=== PATIENT | female | born 1935 | race Caucasian/White ===

== ENCOUNTER 2016-11-09 15:44 | Inpatient (IN) | payer OTHER, MEDICARE ==
[~2016-11-09] VITALS: Ht 160 cm; Wt 86.1 kg
--- NOTE | ~2016-11-09 | EKG ---
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: MZOOK : 1935 Requested By: Mohini Irby Order Number: [id number] MD: Milan Rivas Measurements Intervals [place] Rate: 87 P: 17 VT: 159 QRS: -15 QRSD: 91 T: 25 QT: 355 QTc: 427 Interpretive Statements Sinus rhythm RSR' in V1 or V2, probably normal variant Left ventricular hypertrophy Compared to ECG 06/21/2014 21:28:09 No significant change was found Electronically Signed On 11-11-2016 13:36:58 CDT by Milan Rivas [email or web address] <ELECTRONICALLY SIGNED> By: Milan Rivas MD, [facility] 11/11/16 1336 1550 1550 Milan Rivas MD, [facility] /EPI
[~2016-11-09 15:44] MED LIST: ACETAMINOPHEN-1 EAC1 PO; APAP W/CODEINE1 TA3 PO; AZITHROMYCIN; BUPRENORPHINE HC2 MG TD; BUPRENORPHINE HC8 MG TD; CIPRO500 MG PO; CIPROFLOXACIN500 M1 PO; DEPAKOTE ER500 MG PO; DESYREL150 MG PO; DITROPAN XL10 M1 PO; HYDROCODON-ACE1 EAC1 PO; HYDROCODON-ACE1 EAC8 PO; HYDROCODON-ACE1 EACH; LEVAQUIN 500 M500 M2 PO; LIDODERM 5%1 PATCH TOP; LISINOPRIL10 MG PO; LO-DOSE ASPIRIN81 M1 PO; MACROBID 100 M100 M1 PO; NABUMETONE 500500 M1 PO; NEURONTIN600 MG PO; NORCO 5-325 TA1 EACH PO; ONDANSETRON HCL4 M2 PO; RELAFEN500 MG PO; SEROQUEL 50 MG50 M2 PO; SEROQUEL XR 30300 M1 PO; SUBOXONE 2 MG-1 EAC2 SL; SUBOXONE 2 MG-1 EACH SL; SUBOXONE 8 MG-1 EAC1 SL; SUBOXONE 8 MG-1 EAC2 SL; TOPROL XL50 MG PO; TRAMADOL 50 MG50 MG PO; TRAZADONE PO; TRAZODONE 150150 M1 PO; TRAZODONE HCL100 MG PO; VICODIN 5-5001 EACH PO
[2016-11-09 15:45] VITALS: BP 135/72
[2016-11-09 16:07] LABS: ABSOLUTE NEUTROPHILS 6.2 thou/uL (1.4-8.2); BASOPHILS 0.6 % (0.0-2.0); EOSINOPHILS 1.9 % (0.0-3.0); HEMATOCRIT 40.6 % (37.0-47.0); HEMOGLOBIN 13.8 gm/dL (12.0-15.0); LYMPHOCYTES 19.1 % (24.0-44.0); MANUAL DIFF NO; MCH 30.7 pg (26.0-34.0); MCHC 34.1 g/dL (28.0-37.0); MCV 90.3 fL (80.0-100.0); MONOCYTES 11.6 % (1.0-8.0); PLATELET COUNT 182 thou/uL (150-400); POLYS 66.8 % (36.0-66.0); WBC 9.3 thou/uL (4.0-11.0)
[2016-11-09 16:17] LABS: ANION GAP 5 mmol/L (7-16); BUN 24 mg/dL (7-18); CALCIUM 8.7 mg/dL (8.5-10.1); CHLORIDE 102 mmol/L (98-107); CO2 30 mmol/L (21-32); CREATININE 1.3 mg/dL (0.6-1.0); GLUCOSE 117 mg/dL (74-106); POTASSIUM 4.4 mmol/L (3.5-5.1); SODIUM 137 mmol/L (136-145)
[2016-11-09 16:26] LABS: ALKALINE PHOSPHATASE 56 U/L (46-116); SGOT 67 U/L (15-37); SGPT 33 U/L (30-65); TOTAL BILIRUBIN 0.6 mg/dL (<0.1-1.0); TOTAL PROTEIN 7.3 g/dL (6.4-8.2); TROPONIN-I < 0.04 ng/mL (<0.04-0.07)
[2016-11-09 16:34] LABS: ALBUMIN 3.1 g/dL (3.4-5.0)
[2016-11-09 16:50] LABS: URINE BILIRUBIN NEGATIVE (Negative); URINE BLOOD NEGATIVE (Negative); URINE COLOR YELLOW; URINE GLUCOSE-RANDOM* NEGATIVE (Negative); URINE KETONES NEGATIVE (Negative); URINE NITRITE NEGATIVE (Negative); URINE PROTEIN (DIPSTICK) NEGATIVE (Negative); URINE SPECIFIC GRAVITY >= 1.030 (1.003-1.035); URINE UROBILINOGEN 0.2 E.U./dl (0.2-1.0)
[2016-11-09 17:40] LABS: AMP/METHAMP Negative (Negative); BARBITURATES Negative (Negative); BENZODIAZEPINES Negative (Negative); COCAINE Negative (Negative); METHADONE Negative (Negative); OPIATES POSITIVE (Negative); PCP Negative (Negative); THC Negative (Negative)
[2016-11-09 17:53] VITALS: BP 122/48
[2016-11-09 18:26] VITALS: BP 124/49
[2016-11-09 18:52] VITALS: BP 153/71
[2016-11-09 23:09] VITALS: BP 139/66
[2016-11-10 03:07] VITALS: BP 149/65
[2016-11-10 07:20] VITALS: BP 145/56
[2016-11-10 16:27] VITALS: BP 159/73
[2016-11-10 19:21] VITALS: BP 172/79
[2016-11-11 03:38] VITALS: BP 158/86
[2016-11-11 07:15] VITALS: BP 183/83
[2016-11-11 09:26] LABS: CALCIUM 9.2 mg/dL (8.5-10.1); CREATININE 0.8 mg/dL (0.6-1.0); POTASSIUM 3.7 mmol/L (3.5-5.1)
[2016-11-11 11:09] VITALS: BP 170/69
[2016-11-11 15:13] VITALS: BP 167/73
[2016-11-11 19:50] VITALS: BP 160/69
[2016-11-12 04:15] VITALS: BP 149/69
[2016-11-12 07:15] VITALS: BP 176/87
[2016-11-12 07:45] VITALS: BP 176/78
[2016-11-12 11:40] VITALS: BP 176/87
[2016-11-12 14:24] VITALS: BP 176/87
== END 2016-11-12 15:57 | disposition home health service (06) | DRG 71 ==
LOC: ER 15:44 → EROBS 17:38 → 2N 17:38
PROVIDERS: Family Medicine; Nurse Practitioner Family
DX: G93.40 Encephalopathy, unspecified (principal); G45.9 Transient cerebral ischemic attack, unspecified; N17.9 Acute kidney failure, unspecified; I10 Essential (primary) hypertension; E78.5 Hyperlipidemia, unspecified; F31.9 Bipolar disorder, unspecified; G89.29 Other chronic pain; Z79.899 Other long term (current) drug therapy; Z88.0 Allergy status to penicillin; Z90.11 Acquired absence of right breast and nipple; Z88.6 Allergy status to analgesic agent
CPT/HCPCS: 10081

== ENCOUNTER 2017-04-07 14:38 | Inpatient (IN) | payer OTHER, MEDICARE ==
[~2017-04-07] VITALS: Ht 165.1 cm; Wt 91.4 kg
--- NOTE | ~2017-04-07 | EKG ---
[facility] [place] [address] ELECTROCARDIOGRAM REPORT Name: ERA GARCIA Room #: [facility]#: [id number] Admission: 04/07/17 Attend Phys: Discharge: Date of : 35 Report #: [id number] THIS REPORT FOR: //name// [facility] ED Test Date: 2017-04-07 Test Time: 14:48:33 Pat Name: ERA GARCIA Department: Room: Gender: F Felt Puller: HARRIS : 1935 Requested By: Julia Ellis Order Number: [id number] MD: Milan Rivas Measurements Intervals [place] Rate: 91 P: 62 WA: 187 QRS: -10 QRSD: 84 T: 3 QT: 365 QTc: 450 Interpretive Statements Sinus rhythm RSR' in V1 or V2, probably normal variant Compared to ECG 11/09/2016 15:50:31 No significant changes Electronically Signed On 04-07-2017 17:20:20 FILTERER by Milan Rivas [email or web address] <ELECTRONICALLY SIGNED> By: Milan Rivas MD, [facility] 04/07/17 1720 1448 1448 Milan Rivas MD, [facility] /EPI
--- NOTE | ~2017-04-07 | HC ---
[facility] [place] [address] CONSULTATION Name: ERA GARCIA Room #: 364-P [facility] IN M.R.#: [id number] Admission: 04/07/17 Attend Phys: Esvin Chandra MD Discharge: 04/11/17 Date of : 35 Report #: [id number] THIS REPORT FOR: //name// CC: Esvin Chandra DATE OF SERVICE: 04/10/2017 HISTORY OF PRESENT ILLNESS: The patient is an 81-year-old white female who was found unresponsive on her couch at her Assisted Living Facility. She was noted to be quite hypoxic and was placed on 10 liters. She had an emesis en route. She was noted to have a significant global encephalopathy with presumed aspiration pneumonia. She is more alert, but still has significant encephalopathy and mental status change. She continues to be hypoxemic. Currently, he is on [address] of the head was negative. We are seeing her in rehabilitation medicine consultation. PAST MEDICAL HISTORY: Breast CA, hypertension, bipolar disorder, bilateral total knee replacements, chronic pain/narcotic usage. MEDICATIONS: Please see the full medication listing. ALLERGIES: MORPHINE, PENICILLIN. APPARENTLY, THE MORPHINE MAY HAVE CONTRIBUTED TO HER SHORTNESS OF BREATH/STOPPING BREATHING. HABITS: No history of tobacco or alcohol abuse. SOCIAL HISTORY: Lives at [facility], no steps, was modified independent with a 4-wheeled walker. REVIEW OF SYSTEMS: Did not offer any current complaints of chest pain, shortness of breath, abdominal discomfort. Some shortness of breath with limited activity. No focal extremity pain complaints currently, although again she has significant cognitive issues. She does have significant past pain complaints and has a diagnosis of chronic pain syndrome requiring complex medication management by the pain clinic. She also has her psychiatric issues with bipolar disorder and noted prior episode of major depressive disorder. PHYSICAL EXAMINATION: GENERAL: She is an 81-year-old white female in no obvious distress. VITAL SIGNS: Temperature is 98.6, pulse 78, respirations 18, blood pressure 148/75. NEUROLOGIC: She is alert. She knew she was at [facility]. She can follow basic commands. She was able to tell me that she was not previously on oxygen. She had some difficulty with naming objects including a watch, but when once I said, she was able to name it back for me. She could follow basic 1 step commands. EOMs appeared to be full. Facies were symmetric. She has [facility] [address] [place] [address] CONSULTATION Name: ERA GARCIA Room #: 364-P [facility] IN M.R.#: [id number] Admission: 04/07/17 Attend Phys: Esvin Chandra MD Discharge: 04/11/17 Date of : 35 Report #: [id number] functional range of motion of both upper extremities with strength of grade 4-/5. DTRs are trace to 1. LOWER EXTREMITIES: Old bilateral knee incisions are well healed. No focal calf swelling. EXTREMITIES: No distal lower extremity edema. Strength is probably a grade 3+ to 4-/5. DTRs are trace to 1. Functionally, she has been contact guard with sit to stand. She has ambulated a short distance 40-feet contact guard with a front-wheeled walker. ASSESSMENT: An 81-year-old white female with the following problem list: 1. Multifactorial encephalopathy. There appears to be a hypoxic component. 2. Functional mobility, ADLs and cognitive deficits with decline from premorbid function. 3. Presumed aspiration pneumonia, on antibiotics. 4. Past history of chronic pain syndrome. 5. Has history of chronic narcotic usage. 6. Bipolar disorder. 7. History of depressive disorder. 8. Breast cancer. 9. Hypertension. 10. Bilateral total knee replacements. PLAN: The patient is a candidate for an acute in-hospital inpatient rehabilitation stay. We can plan on transfer when the patient is medically cleared and a bed available on the rehab [facility]. We will be glad to follow along with you in the meantime. <ELECTRONICALLY SIGNED> By: Cachorro Holden MD 04/25/17 1408 0935 1856 Cachorro Holden MD /nt
[2017-04-07 14:39] VITALS: BP 138/67
[2017-04-07 15:04] LABS: BE(vivo) -0.8 mmol/L (-2 to +3); HCO3 28.8 mmol/L (22.0-26.0); PO2 101.8 mmHg (80.0-100.0); sO2 96.4 % (92.0-98.0)
[2017-04-07 15:05] LABS: PCO2 70.4 mmHg (35.0-45.0); pH 7.229 (7.360-7.450)
[2017-04-07 15:18] LABS: ABSOLUTE NEUTROPHILS 8.5 thou/uL (1.4-8.2); BASOPHILS 0.3 % (0.0-2.0); EOSINOPHILS 0.1 % (0.0-3.0); HEMATOCRIT 43.3 % (37.0-47.0); HEMOGLOBIN 14.2 gm/dL (12.0-15.0); LYMPHOCYTES 8.5 % (24.0-44.0); MCH 30.4 pg (26.0-34.0); MCHC 32.8 g/dL (28.0-37.0); MCV 92.6 fL (80.0-100.0); MONOCYTES 6.8 % (1.0-8.0); PLATELET COUNT 219 thou/uL (150-400); POLYS 84.3 % (36.0-66.0); RBC 4.68 mil/uL (4.20-5.00); RDW 14.5 % (10.5-14.5)
[2017-04-07 15:28] LABS: CALCIUM 8.8 mg/dL (8.5-10.1); CREATININE 1.4 mg/dL (0.6-1.0)
[2017-04-07] MEDS ORDERED: ACETAMINOPHEN-1 EAC2 PO (15:32)
[2017-04-07 15:33] LABS: ALBUMIN 3.1 g/dL (3.4-5.0); DIRECT BILIRUBIN 0.1 mg/dL (<0.1-0.3); TOTAL BILIRUBIN 0.3 mg/dL (<0.1-1.0); TOTAL PROTEIN 7.6 g/dL (6.4-8.2)
[2017-04-07 15:36] LABS: POTASSIUM 6.8 mmol/L (3.5-5.1)
[2017-04-07 17:22] LABS: URINE BILIRUBIN NEGATIVE (Negative); URINE BLOOD NEGATIVE (Negative); URINE CLARITY CLEAR; URINE COLOR YELLOW; URINE GLUCOSE-RANDOM* NEGATIVE (Negative); URINE KETONES TRACE (Negative); URINE LEUKOCYTES-REFLEX NEGATIVE (Negative); URINE NITRITE-REFLEX NEGATIVE (Negative); URINE PROTEIN (DIPSTICK) 1+ (Negative); URINE SPECIFIC GRAVITY >= 1.030 (1.005-1.035); URINE UROBILINOGEN 0.2 E.U./dl (0.2-1.0)
[2017-04-07 17:28] LABS: CRYSTALS None Seen /LPF (None Seen); SQUAMOUS 0-3 Few /LPF (0-3); URINE WBC-REFLEX None Seen /HPF (0-5)
[2017-04-07 17:29] LABS: BACTERIA-REFLEX 1-9 Few /HPF (None Seen); HYALINE CASTS 0-3 Few /LPF (None Seen); URINE RBC None Seen /HPF (0-2)
[2017-04-07 17:32] LABS: AMP/METHAMP Negative (Negative); BARBITURATES Negative (Negative); BENZODIAZEPINES Negative (Negative); COCAINE Negative (Negative); METHADONE Negative (Negative); OPIATES POSITIVE (Negative); PCP Negative (Negative)
[2017-04-07 18:41] LABS: BE(vivo) -0.8 mmol/L (-2 to +3); HCO3 26.8 mmol/L (22.0-26.0); PCO2 56.4 mmHg (35.0-45.0); PO2 102.7 mmHg (80.0-100.0); pH 7.295 (7.360-7.450)
[2017-04-07 19:01] VITALS: BP 100/69
[2017-04-07 20:14] VITALS: BP 142/57
[2017-04-07 20:20] VITALS: BP 126/46
[2017-04-08] VITALS: BP 136/59
[2017-04-08 03:23] VITALS: BP 136/58
[2017-04-08 08:54] VITALS: BP 137/55
[2017-04-08 12:58] VITALS: BP 134/67
[2017-04-08 17:54] VITALS: BP 145/65
[2017-04-08 19:45] VITALS: BP 136/67
[2017-04-09 04:15] VITALS: BP 141/63
[2017-04-09 08:20] VITALS: BP 162/67
[2017-04-09 12:17] VITALS: BP 152/69
[2017-04-09 16:39] VITALS: BP 160/71
[2017-04-09 20:30] VITALS: BP 172/67
[2017-04-10 05:10] VITALS: BP 168/89
[2017-04-10 09:25] VITALS: BP 148/75
[2017-04-10 13:44] LABS: HEMATOCRIT 41.3 % (37.0-47.0); HEMOGLOBIN 13.6 gm/dL (12.0-15.0); MCH 29.9 pg (26.0-34.0); MCV 90.6 fL (80.0-100.0); RBC 4.56 mil/uL (4.20-5.00); RDW 14.1 % (10.5-14.5); WBC 11.7 thou/uL (4.0-11.0)
[2017-04-10 13:59] LABS: CALCIUM 8.8 mg/dL (8.5-10.1); CREATININE 0.8 mg/dL (0.6-1.0); POTASSIUM 3.8 mmol/L (3.5-5.1); TOTAL BILIRUBIN 0.5 mg/dL (<0.1-1.0)
[2017-04-10 17:49] VITALS: BP 180/80
[2017-04-10 20:20] VITALS: BP 173/82
[2017-04-11 05:10] VITALS: BP 169/69
[2017-04-11 07:42] VITALS: BP 169/66
[2017-04-11 11:39] VITALS: BP 178/64
[2017-04-11] MEDS ORDERED: CIPRO500 MG PO (12:49)
[2017-04-11 15:08] VITALS: BP 162/75
== END 2017-04-11 18:01 | DRG 91 ==
LOC: ER 14:38 → 3W 18:04 → EROBS 18:04 → 3W 18:04
PROVIDERS: Emergency Medicine; Family Medicine
DX: G93.1 Anoxic brain damage, not elsewhere classified (principal); J69.0 Pneumonitis due to inhalation of food and vomit; F19.90 Other psychoactive substance use, unspecified, uncomplicated; I10 Essential (primary) hypertension; F31.9 Bipolar disorder, unspecified; E87.5 Hyperkalemia; G89.4 Chronic pain syndrome; K21.9 Gastro-esophageal reflux disease without esophagitis; G47.00 Insomnia, unspecified; Z96.653 Presence of artificial knee joint, bilateral; Z85.3 Personal history of malignant neoplasm of breast; Z90.11 Acquired absence of right breast and nipple; Z79.82 Long term (current) use of aspirin; Z79.899 Other long term (current) drug therapy; Z88.0 Allergy status to penicillin; Z88.5 Allergy status to narcotic agent
CPT/HCPCS: 10879

== ENCOUNTER 2017-04-11 13:55 | Inpatient (IN) | payer OTHER, MEDICARE ==
[~2017-04-11] VITALS: Ht 157.5 cm; Wt 88.5 kg
--- NOTE | ~2017-04-11 | PLAN ---
[facility] [place] [address] REHAB UNIT PLAN OF CARE Name: ERA GARCIA Room #: 504-1 ADM IN M.R.#: [id number] Admission: 04/11/17 Attend Phys: Cachorro Holden MD Discharge: Date of : 35 Report #: [id number] THIS REPORT FOR: //name// CC: Cachorro Chandra DATE OF SERVICE: 04/14/2017 The patient is seen back today in followup. She is in no distress. Last recorded temperature is 98.7, pulse 60, respirations 18, blood pressure is 156/60. The patient was up some during the night, noted to be confused, and impulsive at times. She has been voiding without difficulty. O2 has been on at 2 liters. This morning, she was appropriately talking about the Super Bowl and was conversational. No focal calf swelling. Transfers are min assist with gait contact guard 250 feet front-wheeled walker. Lower body dressing is moderate assistance. In speech therapy, she does have mild comprehensive deficits. ASSESSMENT: 1. Multifactorial encephalopathy. 2. Functional mobility, activities of daily living and cognitive deficits. 3. Presumed aspiration pneumonia. 4. Past history of chronic pain syndrome. 5. Past history of chronic narcotic usage. 6. Bipolar disorder. 7. History of depressive disorder. 8. Breast cancer. 9. Hypertension. 10. Prior bilateral total knee replacements. PLAN: The overall plan of care is based on the preadmission screen, post-admission physician evaluation and information garnered from therapy assessments. 1. Estimated length of stay is at least 10 days to 2 weeks pending progress. 2. Medical prognosis is reasonably good. 3. Anticipated interventions includes the interdisciplinary acute inpatient rehabilitation program with the goal of maximizing the patient's functional independence, so that she can hopefully return back to her prior living situation. PT and OT are involved with speech therapy, rehab nursing is assisting regarding medication management, skin care prophylaxis, bowel and bladder issues, and nursing education. Case management is involved and the hospice consultant physicians. 4. Anticipated functional outcomes would be for the patient to improve as far as her overall cognition and to reach a point where she can be modified independent at the 4-wheeled walker level to return back to her home setting. 5. Discharge destination is [facility]. 6. Expected therapy by discipline includes PT, OT and speech 1 [place] [address] REHAB UNIT PLAN OF CARE Name: ERA GARCIA Room #: 504-1 [facility] IN [facility]#: [id number] Admission: 04/11/17 Attend Phys: Cachorro Holden MD Discharge: Date of : 35 Report #: [id number] each five days a week throughout the duration of the acute inpatient rehabilitation program. <ELECTRONICALLY SIGNED> By: Cachorro Holden MD 04/14/17 1226 0815 0836 Cachorro Holden MD /REJI
--- NOTE | ~2017-04-11 | EKG ---
[address] [address] ELECTROCARDIOGRAM REPORT Name: RADHAERA Ludy Room #: 501-A DIS [facility]#: [id number] Admission: 04/11/17 Attend Phys: Cachorro Holden MD Discharge: 04/22/17 Date of : 35 Report #: [id number] THIS REPORT FOR: //name// [facility] ED Test Date: 2017-04-24 Test Time: 15:20:38 Pat Name: ERA GARCIA Department: Room: Gender: F Label Press Operator: MZOOAnahy : 1935 Requested By: Jd Harris Order Number: [id number] MD: Measurements Intervals [place] Rate: 106 P: 39 HI: 154 QRS: -17 QRSD: 81 T: 28 QT: 338 QTc: 449 Interpretive Statements Sinus tachycardia Probable left atrial enlargement Probable left ventricular hypertrophy Compared to ECG 04/07/2017 14:48:33 Sinus rhythm no longer present [email or web address] By: 1520 1520 Epiphany EpiphanyMD /EPI
--- NOTE | ~2017-04-11 | HC ---
[facility] [place] [address] CONSULTATION Name: ERA GARCIA Room #: 504-1 ADM IN .R.#: [id number] Admission: 04/11/17 Attend Phys: Cachorro Holden MD Discharge: Date of : 35 Report #: [id number] THIS REPORT FOR: //name// CC: Cachorro Chandra DATE OF SERVICE: 04/13/2017 NEUROBEHAVIORAL STATUS EXAMINATION ATTENDING PHYSICIAN: Cachorro Holden M.D. TELECOM MANAGER: Esvin Schneider, PhD CLINICAL PRESENTATION: The patient is an 81-year-old female admitted to the [facility] Rehabilitation Unit for comprehensive inpatient rehabilitation program to improve functional mobility, activities of daily living and self-care, and mental status secondary to deficits from multifactorial encephalopathy. She was initially brought to the hospital when found unresponsive on the couch of her assisted living facility. She had presumed aspiration pneumonia and was confused and disoriented at admission. Her diagnoses also include functional mobility deficits, history of chronic pain, chronic narcotic use, bipolar disorder, depression, breast cancer, hypertension and bilateral knee replacements. A complete description of her medical condition and history can be found in her medical records. Neuropsychological consultation was requested to provide assistance in the assessment of cognitive and emotional status and to provide recommendations and services. Prior to this most recent admission, she was residing in assisted living at [facility]. She has 6 children. The patient is a college graduate. 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 She reports having a good social support network and was playing bridge at [employer] up until this recent medical event. TECHNIQUES UTILIZED: Clinical interview, review of medical records, staff consultation and behavioral observation, mini mental status exam 2 standard version, clock drawing and calibrated ideational fluency assessment (letter and category fluency), brief abstract reasoning test. EXAMINATION FINDINGS: The patient was alert and cooperative with the assessment. She accurately described events surrounding her initial hospitalization. She was able to indicate that she was found in an unconscious state on her couch after missing a meal. There is no evidence of aphasia. Her thoughts are logical and goal oriented. There is no evidence of thought disorder. She does not report auditory or visual hallucinations. The patient [facility] [address] [place] [address] CONSULTATION Name: ERA GARCIA Room #: 504-1 ADM IN ..#: [id number] Admission: 04/11/17 Attend Phys: Cachorro Holden MD Discharge: Date of : 35 Report #: [id number] was tangential during the assessment and required redirection to task. The patient reported symptoms to include sleep disturbance. She does not report subjective anxiety or depression at this time. She also denies difficulty with cognitive function. Appetite is reported as within normal limits. Her performance on the MMSE 2 brief version is within normal limits with a raw score of 15/16. She was 2/3 for immediate recall of 3 items after a brief time delay and distraction. Her performance on the MMSE 2 standard version deteriorated to a raw score of 24/30, T score 36 and percentile rank of 8. She was 1/5 for serial 7's. The patient also had difficulty in copying a simple geometric design. The patient was unable to accurately set the hands of a clock at a designated time. Her performance in letter fluency was in the borderline range with a raw score of 11, T score of 34 and percentile rank of 5. Category fluency was in the borderline range with a raw score of 22, T score 33, and percentile rank of 4. Moderate impairment was noted in overall verbal fluency with a raw score of 33, T score of 28 and percentile rank of 1. Her performance on a brief abstract reasoning test was 5/8 suggesting mild deficits. The patient is presenting with deficits that are primarily in sustained concentration, visual spatial coordination and verbal fluency. Deficits in verbal fluency often indicate impairment in executive functioning. DIAGNOSTIC IMPRESSION: Major Neurocognitive Disorder, unspecified, without behavior disorder -- extent to be determined, likely in the mild to moderate range. Bipolar disorder and depression by history. RECOMMENDATIONS: The patient is presenting with significant cognitive impairment that likely represents dementia. Her mood is stable and does not appear to be contributing to her presentation. Variability in thought organization, memory and problem solving will likely interfere with safety. The patient will need 24-hour care that includes assistance in management of medication, nutrition and finances. Continued placement in assisted living is likely to be adequate if appropriate supervision can be maintained for safety. Reassurance will help contribute to diminishing her sense of anxiety. However, emotional state appears stable and well managed. [address] [address] CONSULTATION Name: ERA GARCIA Room #: 504-1 ADM IN M.R.#: [id number] Admission: 04/11/17 Attend Phys: Cachorro Holden MD Discharge: Date of : 35 Report #: [id number] Thank you very much for allowing me to provide the consultation on this patient. <ELECTRONICALLY SIGNED> By: Esvin Schneider, PhD 04/14/17 1644 1325 1903 Esvin Schneider, PhD /nt
--- NOTE | ~2017-04-11 | H ---
[facility] [place] [address] HISTORY AND PHYSICAL Name: ERA GARCIA Room #: 504-1 ADM IN M.R.#: [id number] Admission: 04/11/17 Attend Phys: Cachorro Holden MD Discharge: Date of : 35 Report #: [id number] THIS REPORT FOR: //name// CC: Cachorro Chandra DATE OF SERVICE: 04/11/2017 HISTORY AND PHYSICAL AND POST-ADMISSION PHYSICIAN EVALUATION HISTORY OF PRESENT ILLNESS: The patient is an 81-year-old white female initially was found unresponsive on her couch at her assisted living facility. She was noted to be quite hypoxic at that time and was placed on 10 liters. She had an emesis en route. She was noted to have a significant global encephalopathy with presumed aspiration pneumonia. She improved as far as her alertness, but was still noted to have significant encephalopathy with mental status changes. She has continued to be hypoxemic and has been on nasal prong O2, [address] of the head was negative. The patient was noted to have had a significant decline in her overall functional mobility and ADLs as well as cognition and has been admitted for acute in-hospital inpatient rehabilitation. PAST MEDICAL HISTORY: Includes breast CA, hypertension, bipolar disorder, bilateral total knee replacements, chronic pain with narcotic usage. MEDICATIONS: Please see the full medication listing. The list includes her previously noted vitamins, herbals and supplements. ALLERGIES: MORPHINE, PENICILLIN. Apparently, the morphine may have contributed to her shortness of breath/stopping breathing. HABITS: No history of tobacco or alcohol abuse. SOCIAL HISTORY: Lives at [facility]. No steps was modified and independent with a 4-wheeled walker. REVIEW OF SYSTEMS: No current complaints of chest pain, shortness of breath or abdominal discomfort. She was rather groggy this morning and had been up some during the night with some increased confusion and was given Haldol as noted. She also was straight catheterized. She does have a significant past pain complaints that are previously noted including chronic pain syndrome requiring complex medication management in clinic. She also has psychiatric issues with bipolar disorder and noted prior episode of major depressive disorder. PHYSICAL EXAMINATION: GENERAL: An 81-year-old white female, was sleepy, but does arouse. VITAL SIGNS: Temperature 37.1, pulse 79, respirations 18, blood pressure [facility] [address] [place] [address] HISTORY AND PHYSICAL Name: ERA GARCIA Room #: 504-1 ADM IN M.R.#: [id number] Admission: 04/11/17 Attend Phys: Cachorro Holden MD Discharge: Date of : 35 Report #: [id number] 182/92. HEENT: Facies appeared symmetric, on nasal prong O2. CHEST: Sounded clear to auscultation. CARDIAC: Regular rate and rhythm. ABDOMEN: Bowel sounds positive, nontender. GENITOURINARY AND RECTAL: Deferred. NEUROLOGIC: Will follow basic 1 step commands. EXTREMITIES: Functional range of motion of both upper and lower extremities, strength is probably grade 4-/5. No distal lower extremity edema. She has old bilateral knee incisions well healed. Prior to coming to rehabilitation, she has been needing min assist with basic short distance functional mobility. ASSESSMENT: An 81-year-old white female with the following problem list: 1. Multifactorial encephalopathy. There appears to be a hypoxic component. She did have some confusion last night and notes that Haldol was given. 2. Functional mobility, ADLs and cognitive deficits with a decline from premorbid function. 3. Presumed aspiration pneumonia for which she has been treated on antibiotics. 4. Past history of chronic pain syndrome. 5. Past history of chronic narcotic usage. 6. Bipolar disorder. 7. History of depressive disorder. 8. Breast cancer. 9. Hypertension. 10. Prior bilateral total knee replacements. PLAN: The patient is admitted for acute in-hospital inpatient rehabilitation. From a post-admission physician evaluation perspective, there are no relevant changes since the preadmission screening. Please see the above review of prior and current functional conditions and comorbidities. Please see the patient's previous and current functional status. As far as risk of complication, she has the above noted medical comorbidities. The initial plan of care involves the interdisciplinary acute inpatient rehabilitation program with the goal of maximizing the patient's functional independence, so that she can hopefully return back to her prior living situation. Measurable functional goals would be for her to become modified independent with transfers, mobility and ADLs and to show improved cognition. Prognosis is reasonably good. Estimated length of stay probably at least 10 days to 2 weeks and potentially longer if warranted. Potential barriers would include her multiple medical comorbidities and decreased functional status. The patient meets diagnostic criteria for an acute in-hospital inpatient rehabilitation stay. She meets medical necessity criteria and we will have the internet marketing consultant physicians continue to follow. She does have the tolerance for an [facility] [address] [place] [address] HISTORY AND PHYSICAL Name: ERA GARCIA Room #: 504-1 [facility] IN M.R.#: [id number] Admission: 04/11/17 Attend Phys: Cachorro Holden MD Discharge: Date of : 35 Report #: [id number] acute rehab therapy program and has appropriate discharge goals back to the home setting. <ELECTRONICALLY SIGNED> By: Cachorro Holden MD 04/14/17 1226 0517 0604 Cachorro Holden MD /[facility]
[~2017-04-11 13:55] MED LIST changes: +ACETAMINOPHEN-1 EAC2 PO
[2017-04-11 19:30] VITALS: BP 182/96
[2017-04-12] VITALS: BP 179/86
[2017-04-12 03:39] LABS: HEMATOCRIT 43.5 % (37.0-47.0); HEMOGLOBIN 14.3 gm/dL (12.0-15.0); MCH 29.6 pg (26.0-34.0); MCHC 32.9 g/dL (28.0-37.0); MCV 90.2 fL (80.0-100.0); RBC 4.82 mil/uL (4.20-5.00); RDW 13.7 % (10.5-14.5); WBC 12.5 thou/uL (4.0-11.0)
[2017-04-12 03:48] LABS: CALCIUM 8.5 mg/dL (8.5-10.1); CREATININE 0.9 mg/dL (0.6-1.0)
[2017-04-12 08:00] VITALS: BP 155/61
[2017-04-12 19:56] VITALS: BP 161/85
[2017-04-13 07:15] VITALS: BP 175/74
[2017-04-13 20:19] VITALS: BP 156/60
[2017-04-14 05:22] LABS: CALCIUM 8.3 mg/dL (8.5-10.1); CREATININE 0.8 mg/dL (0.6-1.0); POTASSIUM 4.4 mmol/L (3.5-5.1)
[2017-04-14 08:18] VITALS: BP 141/70
[2017-04-14 19:15] VITALS: BP 178/74
[2017-04-15 07:45] VITALS: BP 139/52
[2017-04-15 19:28] VITALS: BP 136/82
[2017-04-15 19:37] VITALS: BP 154/66
[2017-04-16 07:01] VITALS: BP 150/65
[2017-04-16 19:18] VITALS: BP 143/67
[2017-04-17 08:30] VITALS: BP 141/78
[2017-04-17 19:25] VITALS: BP 128/57
[2017-04-18 07:15] VITALS: BP 126/63
[2017-04-18 21:26] VITALS: BP 125/55
[2017-04-19 08:00] VITALS: BP 121/66
[2017-04-19 19:05] VITALS: BP 141/54
[2017-04-20 08:30] VITALS: BP 145/48
[2017-04-20 16:33] VITALS: BP 143/68
[2017-04-20 19:00] VITALS: BP 145/60
[2017-04-21 07:57] VITALS: BP 128/79
[2017-04-21 16:52] VITALS: BP 128/79
[2017-04-21 20:00] VITALS: BP 153/73
[2017-04-22 07:15] VITALS: BP 147/60
[2017-04-22 11:43] VITALS: BP 128/79
[2017-04-22 14:29] VITALS: BP 128/79
== END 2017-04-22 14:41 | disposition home health service (06) | DRG 70 ==
LOC: ENTRNSPT 04-22 14:26 → EDTRNSPTSTS 04-22 14:32
PROVIDERS: Family Medicine; Physical Medicine & Rehabilitation
DX: G93.40 Encephalopathy, unspecified (principal); J69.0 Pneumonitis due to inhalation of food and vomit; N17.9 Acute kidney failure, unspecified; M62.82 Rhabdomyolysis; N39.0 Urinary tract infection, site not specified; I10 Essential (primary) hypertension; F31.9 Bipolar disorder, unspecified; Z96.653 Presence of artificial knee joint, bilateral; G89.4 Chronic pain syndrome; F01.50 Vascular dementia, unspecified severity, without behavioral disturbance, psychotic disturbance, mood disturbance, and anxiety; E87.6 Hypokalemia; R41.82 Altered mental status, unspecified; R53.81 Other malaise; Z85.3 Personal history of malignant neoplasm of breast; Z88.0 Allergy status to penicillin; Z88.6 Allergy status to analgesic agent; Z79.899 Other long term (current) drug therapy
CPT/HCPCS: 10092; 10112

== ENCOUNTER 2017-04-24 14:35 | Inpatient (IN) | payer OTHER, MEDICARE ==
[~2017-04-24] VITALS: Ht 152.4 cm; Wt 89.2 kg
[2017-04-24 14:35] VITALS: BP 118/42
[2017-04-24 15:13] LABS: ABSOLUTE NEUTROPHILS 8.7 thou/uL (1.4-8.2); BASOPHILS 0.8 % (0.0-2.0); EOSINOPHILS 0.7 % (0.0-3.0); HEMATOCRIT 39.3 % (37.0-47.0); HEMOGLOBIN 12.9 gm/dL (12.0-15.0); LYMPHOCYTES 11.8 % (24.0-44.0); MCH 30.1 pg (26.0-34.0); MCHC 32.8 g/dL (28.0-37.0); MCV 91.5 fL (80.0-100.0); MONOCYTES 7.4 % (1.0-8.0); PLATELET COUNT 162 thou/uL (150-400); POLYS 79.3 % (36.0-66.0); RBC 4.29 mil/uL (4.20-5.00); RDW 14.2 % (10.5-14.5); WBC 10.9 thou/uL (4.0-11.0)
[2017-04-24 15:14] LABS: ANION GAP 7 mmol/L (7-16); BUN 33 mg/dL (7-18); CALCIUM 8.4 mg/dL (8.5-10.1); CHLORIDE 106 mmol/L (98-107); CO2 26 mmol/L (21-32); CREATININE 1.8 mg/dL (0.6-1.0); GLUCOSE 144 mg/dL (74-106); POTASSIUM 5.6 mmol/L (3.5-5.1); SODIUM 139 mmol/L (136-145)
[2017-04-24 15:24] LABS: ALBUMIN 2.8 g/dL (3.4-5.0); SGOT 44 U/L (15-37); SGPT 42 U/L (30-65); TOTAL BILIRUBIN 0.3 mg/dL (<0.1-1.0); TOTAL PROTEIN 6.5 g/dL (6.4-8.2); TROPONIN-I < 0.04 ng/mL (<0.06)
[2017-04-24 15:25] LABS: BE(vivo) -1.6 mmol/L (-2 to +3); HCO3 24.6 mmol/L (22.0-26.0); PCO2 47.2 mmHg (35.0-45.0); pH 7.335 (7.360-7.450); sO2 82.7 % (92.0-98.0)
[2017-04-24 17:56] VITALS: BP 118/42
[2017-04-24 18:43] VITALS: BP 113/59; BP 120/66
[2017-04-24 19:35] VITALS: BP 100/57
[2017-04-24 23:31] VITALS: BP 134/86
[2017-04-25 05:07] VITALS: BP 134/57
[2017-04-25 10:54] VITALS: BP 153/114
[2017-04-25 15:52] VITALS: BP 145/72
[2017-04-25 16:20] VITALS: BP 121/71
[2017-04-25 19:55] VITALS: BP 168/73
[2017-04-26 03:55] LABS: URINE BILIRUBIN NEGATIVE (Negative); URINE BLOOD NEGATIVE (Negative); URINE CLARITY CLEAR; URINE COLOR YELLOW; URINE GLUCOSE-RANDOM* NEGATIVE (Negative); URINE KETONES NEGATIVE (Negative); URINE LEUKOCYTES NEGATIVE (Negative); URINE NITRITE NEGATIVE (Negative); URINE PROTEIN (DIPSTICK) NEGATIVE (Negative); URINE SPECIFIC GRAVITY 1.015 (1.005-1.035); URINE UROBILINOGEN 0.2 E.U./dl (0.2-1.0)
[2017-04-26 04:00] VITALS: BP 174/77
[2017-04-26 04:04] LABS: AMP/METHAMP Negative (Negative); BARBITURATES Negative (Negative); BENZODIAZEPINES Negative (Negative); COCAINE Negative (Negative); METHADONE Negative (Negative); OPIATES POSITIVE (Negative); PCP Negative (Negative)
[2017-04-26 08:00] VITALS: BP 165/64
[2017-04-26 10:57] LABS: CALCIUM 8.8 mg/dL (8.5-10.1); CREATININE 0.9 mg/dL (0.6-1.0); POTASSIUM 4.7 mmol/L (3.5-5.1); TOTAL BILIRUBIN 0.4 mg/dL (<0.1-1.0); TOTAL PROTEIN 6.9 g/dL (6.4-8.2)
[2017-04-26 11:03] VITALS: BP 145/55
[2017-04-26 16:02] VITALS: BP 151/60
[2017-04-26 19:00] VITALS: BP 152/59
[2017-04-27 03:30] VITALS: BP 151/70
[2017-04-27 08:56] VITALS: BP 161/60
[2017-04-27 11:54] VITALS: BP 175/67
[2017-04-27 15:52] VITALS: BP 162/75
[2017-04-27 20:00] VITALS: BP 153/69
[2017-04-28 03:35] VITALS: BP 170/53
[2017-04-28 07:47] VITALS: BP 155/71
[2017-04-28 11:41] VITALS: BP 155/62
[2017-04-28 15:32] VITALS: BP 168/71
[2017-04-28 16:00] VITALS: BP 168/71
[2017-04-28 19:35] VITALS: BP 165/79
[2017-04-29 04:50] VITALS: BP 167/85
[2017-04-29 08:16] VITALS: BP 183/83
[2017-04-29 11:00] LABS: URINE BILIRUBIN NEGATIVE (Negative); URINE BLOOD 3+ (Negative); URINE CLARITY CLOUDY; URINE COLOR AMBER; URINE GLUCOSE-RANDOM* 1+ (Negative); URINE KETONES 1+ (Negative); URINE LEUKOCYTES-REFLEX NEGATIVE (Negative); URINE NITRITE-REFLEX NEGATIVE (Negative); URINE PROTEIN (DIPSTICK) 2+ (Negative); URINE UROBILINOGEN 0.2 E.U./dl (0.2-1.0)
[2017-04-29 11:02] LABS: CASTS None Seen /LPF (None Seen); CRYSTALS None Seen /LPF (None Seen); SQUAMOUS 4-10 Moderate /LPF (0-3)
[2017-04-29 11:03] LABS: URINE RBC >20 Many /HPF (0-2)
[2017-04-29 11:44] VITALS: BP 154/66
[2017-04-29 15:03] VITALS: BP 168/71
[2017-04-29 16:27] VITALS: BP 168/71
== END 2017-04-29 15:50 | disposition home health service (06) | DRG 917 ==
LOC: ER 14:35 → EROBS 16:20 → 3W 16:20
PROVIDERS: Family Medicine; Physician Assistant
DX: T40.601A Poisoning by unspecified narcotics, accidental (unintentional), initial encounter (principal); J96.01 Acute respiratory failure with hypoxia; N17.9 Acute kidney failure, unspecified; F31.9 Bipolar disorder, unspecified; G89.29 Other chronic pain; E86.0 Dehydration; E87.5 Hyperkalemia; Y92.89 Other specified places as the place of occurrence of the external cause; Z90.11 Acquired absence of right breast and nipple; Z88.6 Allergy status to analgesic agent; Z88.0 Allergy status to penicillin; Z79.899 Other long term (current) drug therapy
CPT/HCPCS: 10879

== ENCOUNTER 2017-05-05 19:50 | Inpatient (IN) | payer OTHER, MEDICARE ==
[~2017-05-05] VITALS: Ht 170.2 cm; Wt 86.4 kg
--- NOTE | ~2017-05-05 | EKG ---
[address] [address] ELECTROCARDIOGRAM REPORT Name: ERA GARCIA Room #: 248-P ADM IN M.R.#: [id number] Admission: 05/05/17 Attend Phys: Esvin Chandra MD Discharge: Date of : 35 Report #: [id number] THIS REPORT FOR: //name// [facility] Test Date: 2017-05-07 Test Time: 05:08:33 Pat Name: ERA GARCIA Department: Room: 248 Gender: F Pump Machine Operator: damien : 1935 Requested By: Esvin Chandra Order Number: [id number] MD: Milan Rivas Measurements Intervals [place] Rate: 81 P: 31 SD: 138 QRS: -11 QRSD: 81 T: 23 QT: 390 QTc: 453 Interpretive Statements Sinus rhythm Normal tracing Compared to ECG 04/24/2017 15:20:38 Sinus tachycardia no longer present Electronically Signed On 05-08-2017 8:00:49 FOOD TRAY ASSEMBLER by Milan Rivas [email or web address] <ELECTRONICALLY SIGNED> By: Milan Rivas MD, [facility] 05/08/17 0800 0508 0508 Milan Rivas MD, [facility] /EPI
[2017-05-05 19:51] VITALS: BP 77/30
[2017-05-05 20:17] LABS: HEMATOCRIT 35.2 % (37.0-47.0); HEMOGLOBIN 11.6 gm/dL (12.0-15.0); MCH 29.9 pg (26.0-34.0); MCV 90.8 fL (80.0-100.0); PLATELET COUNT 312 thou/uL (150-400); RBC 3.88 mil/uL (4.20-5.00); RDW 13.8 % (10.5-14.5)
[2017-05-05 20:20] LABS: CALCIUM 9.1 mg/dL (8.5-10.1); CREATININE 1.6 mg/dL (0.6-1.0); POTASSIUM 4.8 mmol/L (3.5-5.1)
[2017-05-05 20:25] LABS: BE(vivo) -1.4 mmol/L (-2 to +3); HCO3 22.3 mmol/L (22.0-26.0); PCO2 34.5 mmHg (35.0-45.0); PO2 67.7 mmHg (80.0-100.0); pH 7.429 (7.360-7.450); sO2 94.1 % (92.0-98.0)
[2017-05-05 20:46] LABS: ABSOLUTE NEUTROPHILS 4.2 thou/uL (1.4-8.2); ANISOCYTOSIS 1+; POLYCHROMASIA OCCASIONAL
[2017-05-05 21:35] LABS: URINE BILIRUBIN NEGATIVE (Negative); URINE BLOOD 3+ (Negative); URINE CLARITY CLOUDY; URINE COLOR YELLOW; URINE GLUCOSE-RANDOM* NEGATIVE (Negative); URINE KETONES TRACE (Negative); URINE NITRITE-REFLEX NEGATIVE (Negative); URINE PROTEIN (DIPSTICK) 3+ (Negative); URINE SPECIFIC GRAVITY 1.025 (1.005-1.035); URINE UROBILINOGEN 0.2 E.U./dl (0.2-1.0)
[2017-05-05 21:37] LABS: URINE LEUKOCYTES-REFLEX 3+ (Negative)
[2017-05-05 21:39] LABS: AMP/METHAMP Negative (Negative); BARBITURATES Negative (Negative); BENZODIAZEPINES Negative (Negative); COCAINE Negative (Negative); METHADONE Negative (Negative); OPIATES POSITIVE (Negative); PCP Negative (Negative)
[2017-05-05 21:49] LABS: SQUAMOUS 0-3 Few /LPF (0-3)
[2017-05-05 21:50] LABS: BACTERIA-REFLEX >30 Many /HPF (None Seen); CRYSTALS None Seen /LPF (None Seen); FINE GRANULAR CASTS 0-3 Few /LPF (None Seen); HYALINE CASTS 4-10 Moderate /LPF (None Seen); URINE RBC 0-2 Rare /HPF (0-2); URINE WBC-REFLEX >25 Many /HPF (0-5); WBC CLUMPS Packed (None Seen)
[2017-05-06] VITALS (31 sets, daily range): BP systolic 117–171; BP diastolic 50–145
[2017-05-07] VITALS (10 sets, daily range): BP systolic 145–167; BP diastolic 60–80
[2017-05-08 04:00] VITALS: BP 173/85
[2017-05-08 08:00] VITALS: BP 177/94
[2017-05-08] MEDS ORDERED: BACTRIM DS TAB1 EACH PO (12:26)
[2017-05-08 13:39] VITALS: BP 149/71
== END 2017-05-08 13:57 | disposition home health service (06) | DRG 917 ==
LOC: ER 19:50 → EROBS 21:25 → ICU 21:25
PROVIDERS: Emergency Medicine
DX: T40.603A Poisoning by unspecified narcotics, assault, initial encounter (principal); G93.40 Encephalopathy, unspecified; J96.00 Acute respiratory failure, unspecified whether with hypoxia or hypercapnia; N39.0 Urinary tract infection, site not specified; F31.9 Bipolar disorder, unspecified; R09.02 Hypoxemia; G89.29 Other chronic pain; Z88.0 Allergy status to penicillin; Z90.11 Acquired absence of right breast and nipple; Z79.82 Long term (current) use of aspirin; Z79.899 Other long term (current) drug therapy; Z88.6 Allergy status to analgesic agent; Y92.89 Other specified places as the place of occurrence of the external cause
CPT/HCPCS: 10078

== ENCOUNTER 2019-09-22 11:00 | Inpatient (IN) | payer OTHER, MEDICARE ==
[~2019-09-22] VITALS: Ht 167.6 cm; Wt 89.9 kg
[~2019-09-22 11:00] MED LIST changes: +BACTRIM DS TAB1 EACH PO
[2019-09-22 11:01] VITALS: BP 116/64
[2019-09-22 11:27] LABS: HEMATOCRIT 41.7 % (37.0-47.0); HEMOGLOBIN 13.8 gm/dL (12.0-15.0); MCH 31.1 pg (26.0-34.0); MCHC 33.1 g/dL (28.0-37.0); MCV 94.1 fL (80.0-100.0); PLATELET COUNT 151 thou/uL (150-400); RBC 4.44 mil/uL (4.20-5.00); RDW 14.6 % (10.5-14.5); WBC 8.3 thou/uL (4.0-11.0)
[2019-09-22 11:36] LABS: CALCIUM 9.1 mg/dL (8.5-10.1); CREATININE 2.3 mg/dL (0.6-1.0); URINE BILIRUBIN NEGATIVE (Negative); URINE BLOOD NEGATIVE (Negative); URINE CLARITY CLOUDY; URINE COLOR YELLOW; URINE GLUCOSE-RANDOM* NEGATIVE (Negative); URINE KETONES TRACE (Negative); URINE LEUKOCYTES-REFLEX NEGATIVE (Negative); URINE NITRITE-REFLEX NEGATIVE (Negative); URINE PROTEIN (DIPSTICK) 1+ (Negative); URINE SPECIFIC GRAVITY >= 1.030 (1.005-1.035); URINE UROBILINOGEN 0.2 E.U./dl (0.2-1.0)
[2019-09-22 11:40] LABS: POTASSIUM 6.1 mmol/L (3.5-5.1)
[2019-09-22 11:42] LABS: ALBUMIN 3.2 g/dL (3.4-5.0); DIRECT BILIRUBIN 0.2 mg/dL (<0.1-0.2); TOTAL BILIRUBIN 0.7 mg/dL (0.2-1.0); TOTAL PROTEIN 7.7 g/dL (6.4-8.2)
[2019-09-22 11:48] LABS: BACTERIA-REFLEX 1-9 Few /HPF (None Seen); CASTS None Seen /LPF (None Seen); SQUAMOUS None Seen /LPF (0-3); URINE RBC None Seen /HPF (0-2)
[2019-09-22 11:49] LABS: AMORPHOUS URATES Few /LPF (None Seen); AMP/METHAMP Negative (Negative); BARBITURATES Negative (Negative); BENZODIAZEPINES Negative (Negative); COCAINE Negative (Negative); METHADONE Negative (Negative); OPIATES Negative (Negative); PCP Negative (Negative); URINE WBC-REFLEX 0-5 Rare /HPF (0-5)
[2019-09-22] MEDS ORDERED: GABAPENTIN600 M1 PO (12:38)
[2019-09-22] MEDS ORDERED: ATENOLOL 25 MG25 M1 PO (12:39)
[2019-09-22 13:05] LABS: ABSOLUTE NEUTROPHILS 4.9 thou/uL (1.4-8.2)
[2019-09-22 16:01] VITALS: BP 122/55
--- NOTE | 2019-09-22 16:05 | NUR ---
This RN tried to call son, Norman. No answer. Message lef on phone.
--- NOTE | 2019-09-22 16:07 | NUR ---
report attempted to floor nurse. Reports will have to marlin back
[2019-09-22 16:35] VITALS: BP 120/58
[2019-09-22 16:54] VITALS: BP 126/51
--- NOTE | 2019-09-22 18:38 | NUR ---
PT. ARRIVED ON UNIT. OVERALL. "SLEEPY"-RESPONDS TO QUESTINS VERY QUETLY BUT USUALLY CORRECT. SAID SHE JUST WANTS TO WAKE UP A LITLE MORE". PAGED MD SERVICE FOR TREATMENT ORDERS NOW. DENIES CP, DENIES SOB. ON 2 L NC JUST FOR SEDATION CONCERNS AND DOES SNORE-APNEA?
[2019-09-22 19:30] VITALS: BP 142/65
[2019-09-23] VITALS: BP 158/76
--- NOTE | 2019-09-23 03:25 | NUR ---
ASSUMED CARE OF PATIENT AT 1900. INITIALLY PATIENT VERY DROWSY BUT RESPONSIVE TO NAME. PATIENT BECAME MORE ALERT NIGHT PROGRESSED. PATIENT ABLE TO STATE WHAT HOSPITAL SHE WAS IN AND WHAT CITY BUT ADMITS SHE DOESN'T KNOW WHAT DAY IT IS. PATIENT IS FORGETFUL BUT HAD NO IMPULSIVE BEHAVIORS. TITRATED PATIENT TO ROOM AIR WITH OXYGEN SATURATIONS IN LOW 90s. WILL CONTINUE TO MONITOR.
[2019-09-23 03:30] VITALS: BP 163/74
[2019-09-23 05:38] LABS: CALCIUM 8.5 mg/dL (8.5-10.1)
[2019-09-23 05:56] LABS: CREATININE 1.3 mg/dL (0.6-1.0); POTASSIUM 4.5 mmol/L (3.5-5.1)
[2019-09-23 07:27] VITALS: BP 153/73
[2019-09-23 11:07] VITALS: BP 140/55
[2019-09-23 15:57] VITALS: BP 166/56
--- NOTE | 2019-09-23 16:09 | NUR ---
INITIAL ASSESSMENT: JAYDEN reviewed chart and spoke with attending physician. Pt was admitted from [facility] due to overdose of Tramadol. Pt with hx of accidental overdose. JAYDEN spoke with pt via phone. Introduced role of JAYDEN. Pt reports that she lives alone and has a cane and walker to assist with ambulation. Pt states she has caregivers that come to her apt to help set up meds. Pt's plan is to return to her apt tomorrow, or when medically stable. JAYDEN contacted [place] liaison, who states pt has personalized living services through [facility]. Pt's narcs are kept in a lock box. Pt has been getting her pain meds prescribed by her pain mgmt physician. Mic has been talking with pt's son about moving her to Assisted Living. JAYDEN left voice message for pt's son, Norman, to discuss discharge plan. Pt may be ready to discharge back to [facility] tomorrow. JAYDEN updated [facility] liaison. JAYDEN is following to assist as needed with discharge planning.
--- NOTE | 2019-09-23 17:10 | NUR ---
Call rec'd from the Director at [facility] requesting update. Update provided. She is needing a covid test results faxed to [phone] tomorrow in anticipation of pt's possible return tomorrow or Friday. She notes son Norman is out of town and very difficult to reach. He is talking with them about moving her to the [facility] side once he is back in the country. Pt's son Sergio is also available at [phone]. They anticipate her coming back to [facility] with her private duty care in place as well as HH orders so [facility] can see her as well. Dr. Chandra notified of covid test and hh request for dc. Cm to call Deb or filipe to confirm her dc date tomorrow/sat.
--- NOTE | 2019-09-23 18:19 | NUR ---
ASSUMMED PT CARE AT APPROXIAMTELY 0700. PT A&O X3/4. PT FORGETFUL AT TIMES. FREQUENT REORIENTATION PROVIDED. ASSESSMENT CHARTED. FALL PRECAUTIONS IN PLACE. PT DENIES HAVING CHEST PAIN. PT DENIES HAVING SOB. PT DENIES HAVING ACUTE PAIN. VITAL SIGNS STABLE. PT AMBULATES STEADY C STANDBY AND WALKER. PT HAD FREQUENT BOWEL MOVEMENTS THROUGHOUT THE DAY. INFORMED DR. PRITCHARD. NEW ORDERS IMPLEMENTED. PT NEGATIVE FOR C.DIFF. PT UP TO CHAIR THROUGHOUT THE SHIFT. PT COMFORTABLE. PT DENIES HAVING FURTHER CONCERNS. EDUCATED PT ABOUT POC.
[2019-09-23 20:54] VITALS: BP 186/82
[2019-09-24 03:04] VITALS: BP 159/77
--- NOTE | 2019-09-24 03:33 | NUR ---
ASSUMED CARE OF PATIENT AT 1900. PATIENT RESTLESS THROUGHOUT NOC AND DID NOT SLEEP WELL. PATIENT FIXATED ON GOING HOME AND WHO WAS GOING TO GET HER BACK TO [facility]. ATTEMPTED TO EDUCATE THE PATIENT ABOUT THE PHYSICIAN MAKING THAT DECISION AND ARRANGEMENTS WOULD BE MADE WHEN TIME COMES TO LEAVE. PATIENT FORGETFUL AND HAD THE SAME CONVERSATION MULTIPLE TIMES. PATIENT SBA TO BEDSIDE COMMODE. SOME SOA WITH ACTIVITY NOTED AT TRANSFER. PATIENT CONTINUES TO HAVE MULTIPLE LOOSE STOOLS. ADMINISTERED PRN LOPERAMIDE AROUND 0330.
[2019-09-24 07:40] VITALS: BP 185/73
[2019-09-24 11:36] VITALS: BP 172/63
--- NOTE | 2019-09-24 11:42 | NUR ---
JAYDEN reviewed chart. COVID test is pending at this time. Consult for lori-psych to evaluate pt for possible admission to [facility] if recommended. JAYDEN provided update to [place] liaison. corporate planner to fax referral to [facility], as pt will eventually return to [facility] with [facility]. JAYDEN is following to assist as needed with discharge planning.
[2019-09-24 12:09] LABS: CALCIUM 8.3 mg/dL (8.5-10.1); POTASSIUM 4.6 mmol/L (3.5-5.1)
[2019-09-24 13:19] VITALS: BP 172/63
--- NOTE | 2019-09-24 13:21 | NUR ---
FAXED REFERRAL TO [facility] SPOKE WITH RODRIGUE LAUREN INTAKE SHE CAN ACCEPT PT AT DISCHARGE. IF PT DISCHARGES OVER WEEKEND PLEASE FAX DC ORDERS/SUMMARY TO [phone] AND CALL [phone] NOTIFY OF DC.
[2019-09-24] MEDS ORDERED: LOPERAMIDE 2 MG2 MG PO (14:09)
--- NOTE | 2019-09-24 15:21 | NUR ---
ROOM AIR SATURATION IS 93%, CALLED RE[facility] TO [facility] AND WILL BE DISCHARGED TO THERE.
--- NOTE | 2019-09-24 16:18 | NUR ---
PT DICHARGED TO [facility].
--- NOTE | 2019-09-24 16:23 | NUR ---
FAXED COVID RESULT TO [facility] RECEIVED CONFIRMATION AND LEFT MSG WITH RICHAR MCGUIRE,
[2019-09-24 18:14] VITALS: BP 98/53
--- NOTE | 2019-09-24 18:16 | NUR ---
ARRIVED TO FLOOR VIA WC FROM CCU ACCOMPNIED BY 2ND FLOOR NURSING STAFF. 83 YEAR OLD FEMALE ADMITTED TO CCU ON 09/22/19 FROM [facility] AFTER TAKING UNKNOWN AMOUNT TRAMADOL. PT REPORTS THIS TO BE ACCIDENTAL AND DENIES RECENT OR CURRENT SUICIDAL IDEATION, IS ORIENTED TO PERSON, PLACE AND DATE. DENIES C/O PAIN CURRENTLY. COOPERATIVE WITH ADMIT INTERVIEW. NO NOTED PSYCHOSIS,ACUTE ANXIETY-DENIES DEPRESSIVE SYMPTOMS INCLUDING DECREASED APPETITE,POOR SLEEP,ANHEDONIA ETC. ORIENTED TO ROOM AND UNIT-FOOD FLUIDS OFFERED AND ACCEPTED. PLACED ON FALLS PRECAUTIONS WITH ARM BAND,SLIPPERS AND ID BAND PLACED. VS STABLE ON ADMIT-ROLLER WALKER PROVIDED.
[2019-09-24 19:30] VITALS: BP 188/59
--- NOTE | 2019-09-25 03:50 | NUR ---
Assumed care of pt @ 1900. Pt calm et cooperative at beginning of shift but got increasingly agitated as the shift wore on. Took medications whole without difficulty. Ambulates the halls ad lauryn with steady gait. Socialized with peers in dayroom until HS. VSWNL. Health assessment with no abnormalities noted at this time. Denies SI/HI at present time. Pt unable to sleep this shift et spent the entire shift ambulating back et forth from the dayroom to her room. Currently sitting on bed in room with eyes open. Will continue to monitor per protocol.
[2019-09-25 08:00] VITALS: BP 181/78
--- NOTE | 2019-09-25 08:39 | NUR ---
PT SITTING IN DINING ROOM. PT ORIENTED X4. PT KNOWS ITS September. PT DENIES ANY PAIN OR ANY GOAL FOR TODAY. PT UP WITH WALKER. PT HAS STEADY GAIT. PT DENIES SI AT THIS TIME. PT PANTS DID HAVE OLD DRY STOOL ON THEM. PT ENCOURAGED TO CHANGE INTO SCRUB PANTS IN ORDER TO WASH HER CLOTHES. PT AGREED. PT IS UP WALKING FREQUENTLY OUT OF DINING ROOM. PT TOOK MEDS WHOLE WITHOUT ANY ISSUES.
--- NOTE | 2019-09-25 13:59 | NUR ---
JAYDEN spoke with Pt's Son/DPOA, Sergio Noble [phone]. Sergio was unaware that the Pt had moved to the unit. However he expressed Pt's need for pschiatric treatment. Sergio reported Pt has been dx with Bi-polar, Depression, and Anxiety. Sergio also reported the Pt has " accidentally" overdosed in the past. Sergio reported that Pt is in [place] with Mic however Pt has medication mangement services that give the Pt meds daily. Sergio reported Mic keeps the Pt's medications locked away. Sergio was uncertain how the Pt was able to overdose on tramadol stating, " She must have had and old bottle of medications or a bottle no one knew about." Sergio also reported concern that Pt may be addicted to perscribed pain medication and the Pt has been taking pain medication for yeas due to knee pain. JAYDEN requested a copy of DPOA paperwork. Sergio reported not having acess at the moment due to being out of town. Sergio reported Nataliya having a copy. Jayden asked if they have considered assisted living for the Pt. Sergio stated they felt Pt did not need assisted living yet, but had looked into it. Sergio had not further question or concerns. JAYDEN continue to follow Pt. Jayden will call Mic to request a copy of DPOA paperwork.
--- NOTE | 2019-09-25 14:17 | NUR ---
JAYDEN left a [facility] Director, Meredith Nagel [phone], requesting a copy of DPOA paperwork for Pt.
--- NOTE | 2019-09-25 15:58 | NUR ---
PT HAS BEEN WALKING AROUND AND WANTING TO CALL HER SON. DIALED A NUMBER FOR HER AND SHE DIDN'T GET AN ANSWER. SHE IS WANTING THIS CHIEF COMMUNICATIONS OFFICER TO CALL WHERE SHE IS FROM.
--- NOTE | 2019-09-25 22:18 | NUR ---
2200 RESUMMED CARE FROM DAY SHIFT THIS EVENING, PATIENT IN DAY ROOM WATCHING TV. PATIENT ALERT AND ORIENTED TIMES 4 PATIENTS ABDOMEN SOFT ROUND BOWEL SOUNDS PRESENT. PATIENTS LUNGS CLEAR PATIENT DENIES SI/HI/AH/VH AT PRESENT. PATIENT LIKES TO WALK THE HALLS AND ASKED IF SHE COULD CALL HER SON. PATIENT COOPERATIVE CALM PLEASANT WILL CONTINUE TO MONITOR PATIENT FOR BEHAVIORS AND SAFETY.
--- NOTE | 2019-09-26 00:16 | NUR ---
THIS NURSE ASSUMED CARE OF PATIENT AT APPROXIMATELY 0015, COMPLETING ONE TO ONE WITH PATIENT SHE IS OBSERVED IN BED WITH EYES OPEN. SHE APPEARS ALERT AND ORIENTED X1, NO S/S OF DISTRESS. APPEARS TO BE RESTING IN COMFORT. NURSING WILL MAINTAIN Q12 CHECKS TO ENSURE SAFETY AT ALL TIMES.
[2019-09-26 05:30] VITALS: BP 182/102
[2019-09-26 07:30] VITALS: BP 162/65
[2019-09-26 07:40] VITALS: BP 162/65
--- NOTE | 2019-09-26 08:25 | NUR ---
PT SITTING IN DINING ROOM TO EAT BREAKFAST. PT NEEDED ENCOURAGED TO SIT AND EAT BREAKFAST. PT IS FORGETFUL ORIENTED TO PERSON. PT LUNGS CLEAR AND NO SOB WITH EXERSION. PT TOOK MEDS WITHOUT ANY ISSUES. PT USES WALKER WITH STEADY GAIT.
--- NOTE | 2019-09-26 14:56 | NUR ---
ADM EZEKIEL BANERJEE TO LEFT KNEE PT STATED SHE HAS SOME ACHING TO IT. SHE SAID SHE HAD SURGERY ABOUT 10 YEARS AGO.
--- NOTE | 2019-09-26 15:30 | NUR ---
PT FINALLY GOT TO CALL HER FRIEND PAT. PT RECIEVED A CARD YESTERDAY FROM HER WITH PAT NUMBER ON IT. PT HAS BEEN WALKING AROUND WITH CARD TO CALL TODAY. TRIED TO CALL PAT EARLIER. NO ANSWER. PAT ANSWERED AT THIS TIME. PT UNABLE TO FINISH SENTANCES WITH NURSE. SUCH MY PANTS, THEN DOESN'T FINISH SENTANCE. THIS WASHING MACHINE LOADER STATED TONIGHT SHE CAN PUT ON THE BLUE PANTS AND THAT WILL MAKE IT EASIER TO PLACE EZEKIEL JOSE CREAM.
[2019-09-26 20:34] VITALS: BP 180/85
[2019-09-26 22:00] VITALS: BP 180/85
--- NOTE | 2019-09-27 01:19 | NUR ---
Assumed care of patient this pm shift. Patient in good spirits, pleasant, and cooperative as well as confused. Patient denies hi/si. Patient states that she has knee pain and was given tylenol. Patient has been up pacing this evening, unable to sleep at this point. Patient is alert and oriented x2-3. Patient is oriented to time, person, and knows who the president is. Patients affect is blunted. Patient is medication adherent and takes her pills whole with thin fluids. Patients assessment shows no signs of acute distress. Patients breath sounds are clear, diminished in the bases, bowel sounds present, and s1 s2 heard with auscultation. We will continue to monitor patient per hospital protocol.
[2019-09-27 08:52] VITALS: BP 192/82
[2019-09-27 09:23] VITALS: BP 197/82
--- NOTE | 2019-09-27 13:54 | NUR ---
JAYDEN called and left a VM for this pt's DPOA /son Norman regarding d/c plans and provided him this workers phone number
--- NOTE | 2019-09-27 15:23 | NUR ---
RESTLESS-PACING IN HALLWAYS-WILL ATTEND GROUPS AND MEALS WITH PROMPTING BUT WILL SIT FOR ONLY 5-10 MINUTES BEFORE RESUMING PAING OR GOING TO ROOM. MINIMAL CONVERSATION WITH PEERS. ORIENTED TO PERSON ONLY. DENIES C/O PAIN. BP THIS AM INITALLY ELEVATED AT 190/82-RECHECKED AFTER ADMININSTRATION OF AM BP MEDS AND IS 158/84-PT DENIES MARES,VISUAL DISTURBANCE. REMAINS ON HIGH FALLS RISK
[2019-09-27 19:38] VITALS: BP 170/65
--- NOTE | 2019-09-28 00:03 | NUR ---
Assumed pt's care at 1845. Pt oriented to self. Confused. Pt was in the dayroom at time of assessment. Pt was pleasant and cooperative. Pt denies anxiety and/or depression. Pt took meds whole. Tylenol for knee pain. Pt retired to her room and have been very implusive and non complaint with using her walker. Frequently getting out of bed. Pt now in the dayroom on a recliner resting. Pt seems more comfortable being out in the dayroom. Will continue to monitor.
== END 2019-09-24 16:25 | disposition home health service (06) | DRG 917 ==
LOC: ER 11:00 → 2N 14:56 → EROBS 14:56 → SBH 14:56 → 2N 16:35 → SBH 09-24 16:25 → 2N 09-24 16:25 → SBH 09-24 16:25
PROVIDERS: Emergency Medicine; ADMIT Family Medicine; ATTEND Family Medicine
DX: T40.4X1A Poisoning by other synthetic narcotics, accidental (unintentional), initial encounter (principal); N17.0 Acute kidney failure with tubular necrosis; G92 Toxic encephalopathy; F31.9 Bipolar disorder, unspecified; E87.5 Hyperkalemia; M54.9 Dorsalgia, unspecified; F41.9 Anxiety disorder, unspecified; F03.90 Unspecified dementia, unspecified severity, without behavioral disturbance, psychotic disturbance, mood disturbance, and anxiety; E87.6 Hypokalemia; Z96.653 Presence of artificial knee joint, bilateral; G89.29 Other chronic pain; Z90.11 Acquired absence of right breast and nipple; Z79.899 Other long term (current) drug therapy; Z88.6 Allergy status to analgesic agent; Z88.5 Allergy status to narcotic agent; Z88.0 Allergy status to penicillin; Y92.89 Other specified places as the place of occurrence of the external cause; Z03.818 Encounter for observation for suspected exposure to other biological agents ruled out
CPT/HCPCS: 10081; 10880

== ENCOUNTER 2019-09-22 14:56 | Inpatient (IN) | payer OTHER, MEDICARE ==
[~2019-09-22 14:56] MED LIST changes: +ATENOLOL 25 MG25 M1 PO; +GABAPENTIN600 M1 PO
[2019-09-24] MEDS ORDERED: LOPERAMIDE 2 MG2 MG PO (14:09)
--- NOTE | 2019-09-28 16:09 | NUR ---
Pt's notes cannot be found from previoous account. SW did call son and left a VM yesterday providing phone number.
[2019-09-28 17:28] VITALS: BP 146/84
--- NOTE | 2019-09-28 18:07 | NUR ---
RESTLESS MOST OF SHIFT-PACING IN HALLWAYS-GOING FREQUENTLY FROM ROOM TO DINING ROOM. DOES ATTEND SCHEDULED GROUPS WITH PROMPTING. DENIES SI/SH/HI. NO NOTED OR REPORTED PSYCHOSIS. DID REPORT LEFT KNEE PAIN RATED A 4 ON 1-10 SCALE-BENGAY CREAM APPLIED PER REQUEST WITH REPORTED BRIEF IMPROVEMENT OF SYMPTOMS. USING ROLLER WALKER FOR AMBULATION AND AT TIMES WILL NOT BE USING IT-AT TIMES HOLDING ONTO WALKER WITH ONE HAND AND CARRYING VARIOUS ITEMS IN OTHER-EDUCATION PROVIDED. IS ORIENTED TO NAME ONLY. COMPLIENT WITH MEDICATIONS. AM BP ELEVATED THIS AM PRIOR TO BP SCHEDULED BP MEDS-184/74. BP RECHECK AT 1100 IS 158/84-DR. VAZQUEZ NOTIFIED OF ABOVE AND ORDERS RECEIVED THIS PM 1700 TO BEGIN AMLODIPINE 10MG-GIVEN AT 1700 BP RECHECK 140/74.
[2019-09-28 19:10] VITALS: BP 178/88
--- NOTE | 2019-09-29 01:29 | NUR ---
Pt oriented to self and place. Confused and forgetful. Pt was pleasant and cooperative with assessment. Pt denies pain. pt denies anxiety and/or depression. Pt talked about having 6 children, most of them live in [place], and a daughter lives in [facility] in [place]. Pt voiced having good relationships with her kids. Pt was very excited to talk about her kids. Pt voiced living in an apartment close to the hospital. Pt asked when she would get to go home. Nursing communicated to pt to direct the question to the doctor as the doctor would provide better answer. Pt took meds whole. Pt has been ambulating back and forth between dayroom and bedroom. Pt is not getting any good sleep yet. Will continue to monitor.
[2019-09-29 06:05] LABS: ABSOLUTE NEUTROPHILS 4.4 thou/uL (1.4-8.2); BASOPHILS 0.9 % (0.0-2.0); HEMOGLOBIN 13.9 gm/dL (12.0-15.0); LYMPHOCYTES 32.6 % (24.0-44.0); WBC 8.6 thou/uL (4.0-11.0)
[2019-09-29 06:13] LABS: EOSINOPHILS 4.1 % (0.0-3.0); HEMATOCRIT 41.3 % (37.0-47.0); MCH 31.5 pg (26.0-34.0); MCHC 33.6 g/dL (28.0-37.0); MCV 93.7 fL (80.0-100.0); MONOCYTES 11.4 % (1.0-8.0); PLATELET COUNT 171 thou/uL (150-400); RBC 4.41 mil/uL (4.20-5.00); RDW 14.7 % (10.5-14.5)
[2019-09-29 06:26] LABS: ALBUMIN 3.1 g/dL (3.4-5.0); CALCIUM 8.6 mg/dL (8.5-10.1); CREATININE 0.9 mg/dL (0.6-1.0); POTASSIUM 3.3 mmol/L (3.5-5.1); TOTAL BILIRUBIN 0.5 mg/dL (0.2-1.0); TOTAL PROTEIN 7.5 g/dL (6.4-8.2)
[2019-09-29 07:49] VITALS: BP 165/68
[2019-09-29 11:49] VITALS: BP 165/68
--- NOTE | 2019-09-29 12:02 | NUR ---
SW called both sons and left a VM requesting f/u call to discuss d/c plans. This will include a higher level of care- possibly AL or Al with memort care
--- NOTE | 2019-09-29 14:56 | NUR ---
JAYDEN spoke with Sergio son and he stated that Norman was camping wiht his son and would not be back until Friday. JAYDEN suggested that we have a famimly meeting then to discuss d/c plans. SW reported that this pt might need more services and care and that AL would be recomended. Sergio was worried his mother might not want to leave her apartment and is chekcing with Adri at [facility] [address] [place] about what they can offer with supervision and medication management.
--- NOTE | 2019-09-29 15:52 | NUR ---
PATIENT HAS BEEN UP, AND OUT ON THE UNIT, AMBULATES WITH ASSIST OF ROLLER WALKER. PATIENT IS FORGETFUL, CONFUSED, DIFFICULT TO LOCATE ROOM AT TIMES, REQUIRES FREQUESNT REDIRECTION. PATIENT TOOK AMM MEDICATION WHOLE WITHOUT DIFFICULTY. SHE IS EATING MEALS, AND DRINKING FLUID WELL. PATIENT DENIES SUICIDAL/HOMICIDAL IDEATION. PATIENT RATED DEPRESSION 5/10, ANXIETY, 4/10. PATIENT DENIES HAVING PHYSICAL PAIN. MOOD IS DEPRESSED, AFFECT IS CALM, NO SIGN OF ACUTE DISTRESS NOTED AT THIS TIME, WILL CONTINUE TO REDIRECT, AND MONITOR FOR SAFETY.
[2019-09-29 16:57] LABS: URINE BILIRUBIN NEGATIVE (Negative); URINE BLOOD 3+ (Negative); URINE CLARITY SL CLOUDY; URINE COLOR YELLOW; URINE GLUCOSE-RANDOM* TRACE (Negative); URINE KETONES NEGATIVE (Negative); URINE LEUKOCYTES 2+ (Negative); URINE NITRITE POSITIVE (Negative); URINE PROTEIN (DIPSTICK) 2+ (Negative); URINE SPECIFIC GRAVITY 1.025 (1.005-1.035); URINE UROBILINOGEN 0.2 E.U./dl (0.2-1.0)
[2019-09-29 17:15] LABS: SQUAMOUS 0-3 Few /LPF (0-3)
[2019-09-29 17:16] LABS: BACTERIA >30 Many /HPF (None Seen); CASTS None Seen /LPF (None Seen); CRYSTALS None Seen /LPF (None Seen); URINE WBC >25 Many /HPF (0-5)
--- NOTE | 2019-09-29 19:15 | NUR ---
CARE OF PATIENT ASSUMED AT 1915. PATIENT IS WALKING THE HALLS WITH A WALKER. OCCASSIONALLY SITS IN DAY ROOM OR ON HER BED. RESTLESS, UNABLE TO SIT FOR VERY LONG. A/O X 2. PLEASANTLY CONFUSED, AND RECOGNIZES THAT SHE GETS CONFUSED EASILY. COMPLIANT WITH HS MEDS, THEN GOES BACK TO GETTING IN AND OUT OF BED.
[2019-09-29 19:52] VITALS: BP 175/76
[2019-09-30 07:25] VITALS: BP 179/75
[2019-09-30 09:15] VITALS: BP 179/75
--- NOTE | 2019-09-30 10:02 | NUR ---
1000 RESUMMED CARE THIS AM FROM OVERNIGHT SHIFT THIS AM, PATIENT UP IN DAY ROOM SITTING QUIET. PATIET ATE BREAKFAST TOOK MEDICATION WITHOUT INCIDENCE. PATIENT LUNGS CLEAR ABDOMEN SOFT ROUND BOWEL SOUNDS PRESENT; PATIENT ALERT OREINTED TIMES 4. PATIENT DENIES SI/HI/AH/VH AT PRESENT. PATIENT PLEASANT CALM COOPERATIVE. WILL CONTINUE TO MONITOR PATIENT FOR BEHAVIORS AND SAFETY.
--- NOTE | 2019-09-30 19:15 | NUR ---
Care of patient assumed at 1915. Patient is sitting in the hallway in a recliner as a code red had been called. Patient is pleasant and cooperative. A/O x 3 (Per, Pl, Sit). Denies SI/HI. Denies any concerns or goals today. States she has been having 8/10 pain in her left knee (received APAP which reduced pain to 5/10). MARES, LS, BS all WNL. Med compliant. In and out of bed every couple of minutes from [id number], at which point patient is encouraged to sit in the day room for a while and try to relax in a recliner. This lasted 20 minutes, and patient returns to bed to repeat the pattern.
[2019-09-30 19:37] VITALS: BP 140/60
[2019-10-01 07:24] VITALS: BP 155/62
[2019-10-01 08:00] VITALS: BP 155/62
--- NOTE | 2019-10-01 08:28 | NUR ---
PT IN [place] CHAIR THIS AM WITH EYES CLOSED. PT EASILY WAKEN BY VERBAL STIMULI. PT TOOK MEDS WITHOUT ANY ISSUES. PT DIDN'T COMPLAIN OF ANY PAIN TO KNEE TO THIS IT TEACHER. PT LUNGS CLEAR. PT USES WALKER FAITHFULLY DURING THE DAY. PT STATED SHE WANTED TO GET HER DOG DEB TODAY FROM [facility].
--- NOTE | 2019-10-01 12:54 | NUR ---
JAYDEN called Sergio and requested a family meeting for Friday 10:30 am with Jayden and Dr Campos. Sergio reported that he had spoken with Adri at [facility] and asked that medications be held and managed by them and increased bathing needs a few times a week.
--- NOTE | 2019-10-01 18:52 | NUR ---
PT HAS BEEN PLEASANT WITH STAFF. PT TAKES MEDS WITHOUT ANY ISSUES HAS DENIED ANY PAIN MED.
--- NOTE | 2019-10-01 19:15 | NUR ---
Care of patient assumed at 1915. Patient is sitting in her room. Calm and cooperative with assessment. A/O x 3. Denies SI/HI. HS, LS, BS all WNL. Patient reports knee pain 6/10. APAP given with HS meds, reducing pain to 4/10. Patient is up and down throughout the night, seemingly unable to remain in one position for longer than 5 minutes.
[2019-10-01 20:06] VITALS: BP 153/49
[2019-10-02 07:40] VITALS: BP 181/66
[2019-10-02 08:38] VITALS: BP 1081/66
--- NOTE | 2019-10-02 08:56 | NUR ---
ASSUMED CARE AT 0700 THIS MORNING. PT. UP, DRESSED AND ON THE UNIT. SHE IS SITTING QUIETLY IN THE DINNING ROOM. SHE IS CONFUSED. SHE IS COOPERATIVE WITH TAKING HER MEDICATIONS AND ASSESSMENT. SHE WAS ASKED TO NOT GO TO BED MUCH TODAY SHE WAS UP ALL NIGHT. SHE VERBALIZED UNDERSTANDING OF REQUEST. SHE IS EATING WELL.
[2019-10-02 15:05] VITALS: BP 181/66
--- NOTE | 2019-10-02 19:15 | NUR ---
Care of patient assumed at 1915. Patient is dozing on the couch in the day room. Pleasant and cooperative with assessment. A/O x 3. Reports knee pain /10 and declines intervention. Says she knows she needs to get her sleep scheduled straightened out so that she can sleep at night. HS, LS, BS all wNL. Reports BM today. Retires to bed at 1954 and medications administered at 1999.
[2019-10-02 19:23] VITALS: BP 157/76
[2019-10-03 07:48] VITALS: BP 181/72
[2019-10-03 08:50] VITALS: BP 184/72
--- NOTE | 2019-10-03 09:37 | NUR ---
0930 RESUMMED CARE FROM OVERNIGHT SHIFT THIS AM, PATIENT IN DAY ROOM SLEEPING IN RECLINER. PATIENT GOT UP DID HYGIENE AND ATE BREAKFAST TOOK MEDICATION WITHOUT INCIDENCE. PATIENTS ABDOMEN SOFT ROUND BOWEL SOUNDS PRESENT LUNGS CLEAR. PATIENT DENIES SI/HI/AH/VH AT PRESENT, PATIENT ORIENTED TIMES 4 SOMETIMES GETS FORGETFUL. PATIENT IS CALM COOPERATIVE I GAVE PATIENT SHOWER THIS AM WILL CONTINUE TO MONITOR PATIENT FOR SAFETY AND BEHAVIORS.
--- NOTE | 2019-10-03 19:27 | NUR ---
Care of patient assumed at 1915. Patient is walking the hallway with walker, in and out of her room and day room. Pleasant and cooperative with assessment. A/O x 3. Denies SI/HI. Reports knee pain is tolerable tonight. States she is still trying to fix her sleep pattern. Spoke with patient about new order for Trazodone. Patient understands purpose of medication and knows to notify nurse if desired result is not achieved. Compliant with HS meds. Retires to bed shortly after taking meds.
[2019-10-03 19:30] VITALS: BP 147/59
[2019-10-04 07:16] VITALS: BP 153/57
[2019-10-04 08:59] VITALS: BP 153/68
--- NOTE | 2019-10-04 10:53 | NUR ---
1025 RESUMMED CARE FROM OVERNIGHT SHIFT THIS AM, PATIENT IN DAY ROOM SITTING QUIET. PATIENT ATE BREAKFAST TOOK MEDICATION WITHOUT INCIDENCE; PATIENT ORIENTED TIMES 3 ALERT COOPERATIVE. PATIENTS ABDOMEN IS SOFT ROUND BOWEL SOUNDS PRESENT. PATIENT DENIES SI/HI/AH/VH AT PRESENT PATIENT ASKED WHEN SHE WILL GET TO LEAVE. WILL CONTINUE TO MONITOR PATIENT FOR BEHAVIORS AND SAFETY.
[2019-10-04 19:13] VITALS: BP 123/66
--- NOTE | 2019-10-05 03:19 | NUR ---
7 CARE TRANSFERED 1914 OBSERVED PT SLOW STEADY SHUFFLING GAIT WITH WALKER IN HALLWAY. 193 PT AAOX2, CALM AND COOPERATIVE, VSS, RR EVEN AND NONLABORED ON RA. PT REPORTS PAIN IN LEFT KNEE AND SCALES AT 5 ON 0-10 SCALE. PT DENIES SI/SH/HI/VAH. LATER DURING MEDICATION ADMIN PT HAD NO DIFFICULTIES. PT REASSES FOR PAIN AND PT REPORTED PAIN LEVEL AT 3 ON 0-10 SCALE. LATER PT WAS GIVEN 2ND DOSE OF TRAZADONE AND PT WAS MADE COMFORTABLE IN BED; BUT NOTED A LITTLE WHILE LATER PT UP WALKING HALLWAY. PT HAS BEEN UP SEVERAL TIMES THIS EVENING AFTER SECOND DOSE OF TRAZADONE ADMIN. ZERO ACUTE S/S OF EMOTIONAL OR MEDICAL DISTRESS NOTED. WILL CONTINUE TO MONITOR PER [facility] PROTOCOL.
[2019-10-05 07:17] VITALS: BP 160/70
--- NOTE | 2019-10-05 08:39 | NUR ---
ASSUMED CARE AT 0700 THIS MORNING. UP FOR BREAKFAST IN THE DINNING ROOM AND GROUP. TOOK HER MEDICATIONS WITHOUT DIFFICULTY. REMAINS CONFUSED, BUT PLEASANT.
--- NOTE | 2019-10-05 11:02 | NUR ---
JULIA and Dr. Campos had a meeting with Pt's Family. Julia called Norman Noble, . Norman informed that although nursing staff administers the Pt's medication the Pt was picking up her own medication from [facility]. Norman stated he has contacted [facility] and [facility] about getting the Pt's medication delivered to the front desk receptionist so that they go straight to nursing. Dr. Campos recommeded assisted living for the Pt. Norman stated the family would continue with the [facility] for now and add a la carte services. These services would include bathing and weekly house cleaning along with continued medication mangement for the Pt. Norman stated he would contact [facility] to have all services start when Pt returns to [facility]. The discharge date was set for 10/06/2019. JULIA will contact [facility] for transportation.
--- NOTE | 2019-10-05 13:08 | NUR ---
JAYDEN spoke with Meredith at [facility], , stated Pt needed a COVID test and a Attestation stating Pt is free of communicable disease. Once they recieve they can set up transportation. JAYDEN gave information to Dr. Campos. COVID test has been ordered. JAYDEN faxed over updates including medication list to [facility]. JAYDEN will continue to follow.
[2019-10-05 19:12] VITALS: BP 160/77
[2019-10-05] MEDS ORDERED: CEFUROXIME250 MG PO (20:12)
[2019-10-05] MEDS ORDERED: AMLODIPINE BESY10 MG PO (20:13)
[2019-10-05] MEDS ORDERED: REMERON 30 MG T30 M1 PO (20:14)
[2019-10-05] MEDS ORDERED: TRAZODONE HCL100 MG PO (20:14)
[2019-10-05] MEDS ORDERED: DEPAKOTE ER500 M1 PO (20:14)
[2019-10-05] MEDS ORDERED: OXYBUTYNIN 5 MG5 M1 PO (20:15)
--- NOTE | 2019-10-06 03:28 | NUR ---
10-05-19 CARE TRANSFERED 1914 OBSERVED PT LEFT SIDE LYING RESTING WITH EYES CLOSED IN BED. 1919 PT LEFT SIDE LYING RESTING WITH EYES CLOSED PT EASILY AROUSED TO VOICE AND OBSERVED PT EASILY REPOSITION TO SUPINE. PT AAOX3, REPORTS SHE IS LOOKING FORWARD TO TOMORROW AND HE DISCHARGE. PT VSS, RR EVEN AND NONLABORED, PT DENIES ANY PAIN AND SI/SH/HI/VAH. DURING MEDICATION ADMIN PT HAD NO DIFFICULTIES. LATER PT UP AND WANDERING AROUND, PT REPORTED SHE MAY HAVE TAKEN TOO LONG OF A NAP LATE THIS AFTERNOON. 2ND TRAZADONE ADMIN WITH SNACK; PT ATE 100% OF SNACK. ZERO S/S OF ACUTE EMOTIONAL OR MEDICAL DISTRESS NOTED. WILL CONTINUE TO MONITOR PER [facility] PROTOCOL.
[2019-10-06 07:22] VITALS: BP 155/51
--- NOTE | 2019-10-06 09:01 | NUR ---
JAYDEN confimred that d/c was at 11am and Mic was pciking her up. JAYDEN faxed the COVID test , D/C orders and summary to [facility].
[2019-10-06 09:34] VITALS: BP 155/51
--- NOTE | 2019-10-06 10:49 | NUR ---
ASSUMED CARE AT 0700 THIS MORNING. PT. UP, DRESSED IN HOSPITAL CLOTHING. SHE STATES SHE IS ANXIOUS FOR DISCHARGE TODAY. HER CLOTHING WAS GATHERED BY STAFF AND WASHED. SHE ATE WELL AT BREAKFAST. SHE TOOK HER MORNING MEDICATIONS WITHOUT PROBLEMS NOTED. WILL GET HER DRESSED SOON THE CLOTHING IS DRY.
--- NOTE | 2019-10-07 12:55 | NUR ---
JAYDEN recieved a call from [facility] and they wanted to pick up man services again. JAYDEN requested orders from Dr Campos and then faxed this with the d/c orders, anad summary to [phone].
== END 2019-10-06 11:00 | DRG 885 ==
LOC: SBH 14:56
PROVIDERS: Psychiatry & Neurology Psychiatry; ADMIT Psychiatry & Neurology Psychiatry; ATTEND Psychiatry & Neurology Psychiatry
DX: F31.9 Bipolar disorder, unspecified (principal); N17.9 Acute kidney failure, unspecified; T40.4X1A Poisoning by other synthetic narcotics, accidental (unintentional), initial encounter; N39.0 Urinary tract infection, site not specified; R41.82 Altered mental status, unspecified; G89.29 Other chronic pain; M54.9 Dorsalgia, unspecified; F03.90 Unspecified dementia, unspecified severity, without behavioral disturbance, psychotic disturbance, mood disturbance, and anxiety; I10 Essential (primary) hypertension; Z79.899 Other long term (current) drug therapy; Y92.89 Other specified places as the place of occurrence of the external cause; Z88.0 Allergy status to penicillin; Z88.6 Allergy status to analgesic agent; Z88.8 Allergy status to other drugs, medicaments and biological substances; Z79.891 Long term (current) use of opiate analgesic; Z03.818 Encounter for observation for suspected exposure to other biological agents ruled out
CPT/HCPCS: 10880